=== PATIENT | female | born 1940 | race Caucasian/White ===

== ENCOUNTER → 2016-11-26 | Outpatient (CLI) | payer MEDICARE, OTHER ==
[2016-11-26 10:34] LABS: MEAN CORPUSCULAR HEMOGLOBIN 30.6 pg (27.0-33.0); MEAN CORPUSCULAR HGB CONC 33.7 g/dl (32.0-36.5); MEAN CORPUSCULAR VOLUME 90.7 fl (80.0-96.0); RED CELL DISTRIBUTION WIDTH 12.6 % (11.5-14.5); WHITE BLOOD COUNT 4.2 K/mm3 (4.0-10.0)
[2016-11-26 10:44] LABS: INR 1.02
[2016-11-26 11:07] LABS: ALBUMIN 4.1 GM/DL (3.2-5.2); ALBUMIN/GLOBULIN RATIO 1.11 (1.00-1.93); ALKALINE PHOSPHATASE 97 U/L (45-117); ALT/SGPT 22 U/L (12-78); ANION GAP 5 MEQ/L (8-16); AST/SGOT 19 U/L (15-37); BILIRUBIN,TOTAL 0.6 MG/DL (0.2-1.0); BLOOD UREA NITROGEN 15 MG/DL (7-18); CALCIUM LEVEL 9.1 MG/DL (8.8-10.2); CARBON DIOXIDE LEVEL 29 MEQ/L (21-32); CHLORIDE LEVEL 106 MEQ/L (98-107); CHOLESTEROL LEVEL 266 MG/DL (<200); GLOMERULAR FILTRATION RATE > 60.0 (>39); GLUCOSE, FASTING 89 MG/DL (83-110); POTASSIUM SERUM 4.5 MEQ/L (3.5-5.1); SODIUM LEVEL 140 MEQ/L (136-145); TOTAL PROTEIN 7.8 GM/DL (6.4-8.2); TRIGLYCERIDES LEVEL 120 MG/DL (<150)
== END ==
LOC: M LAB 09:31
PROVIDERS: ATTEND Family Medicine
DX: D64.9 Anemia, unspecified (principal); E03.9 Hypothyroidism, unspecified; Z79.01 Long term (current) use of anticoagulants

== ENCOUNTER → 2016-12-06 | Outpatient (REF) | payer MEDICARE, OTHER | LOC: M LAB REF 09:30 | PROVIDERS: ATTEND Otolaryngology | DX: K13.70 Unspecified lesions of oral mucosa (principal) ==

== ENCOUNTER 2024-12-20 11:50 | Day surgery (SDC) | payer MEDICARE ==
[~2024-12-20] VITALS: Ht 152.4 cm; Wt 59.9 kg
[~2024-12-20 11:50] MED LIST: LR 1,000 ML IV SCH; METO1TAB87 PO
[2024-12-20] MEDS: FLURBIPROFEN 0.03% OPHTH SOLN 2.5 ML OS SCH (13:40)
[2024-12-20] MEDS: TETRACAINE 0.5% OPHTH SOLN 4ML OS SCH (13:40)
[2024-12-20] MEDS: CYCLOPENTOLATE 1% OPHTH SOLN 2 ML BTL OS SCH (13:40)
[2024-12-20] MEDS: PHENYLEPHRINE 2.5% OPHTH SOL 2ML OS SCH (13:40)
[2024-12-20] MEDS: CEFUROXIME 1 MG/0.1 ML INTRACAMERAL INJ As Ordered ONE (14:48)
[2024-12-20] MEDS: LIDOCAINE 1% SDV 5 ML VIAL As Ordered ONE (14:48)
[2024-12-20 15:05] VITALS: BP 157/80; TEMP 97.2; O2SAT 96
== END 2024-12-20 15:21 | disposition home or self-care (01) ==
LOC: M SDC 11:50
PROVIDERS: ATTEND Ophthalmology
DX: H25.12 Age-related nuclear cataract, left eye (principal); I10 Essential (primary) hypertension; R73.03 Prediabetes; E78.00 Pure hypercholesterolemia, unspecified; Z79.899 Other long term (current) drug therapy; Z90.710 Acquired absence of both cervix and uterus; Z88.0 Allergy status to penicillin
CPT/HCPCS: 66984; J0697; J3010; V2632

== ENCOUNTER 2025-01-03 10:31 | Day surgery (SDC) | payer MEDICARE ==
[~2025-01-03] VITALS: Ht 160 cm; Wt 63.8 kg
[~2025-01-03 10:31] MED LIST changes: +CYCLOPENTOLATE 1% OPHTH SOLN 2 ML BTL OD SCH; +FLURBIPROFEN 0.03% OPHTH SOLN 2.5 ML OD SCH; +PHENYLEPHRINE 2.5% OPHTH SOL 2ML OD SCH; +TETRACAINE 0.5% OPHTH SOLN 4ML OD SCH
[2025-01-03] MEDS ORDERED: MIDAZOLAM INJ 2 MG/2 ML VIAL As Ordered ONE (13:41)
[2025-01-03] MEDS: LIDOCAINE 1% SDV 5 ML VIAL As Ordered ONE (14:01)
[2025-01-03] MEDS: CEFUROXIME 1 MG/0.1 ML INTRACAMERAL INJ As Ordered ONE (14:01)
[2025-01-03 14:24] VITALS: BP 141/68; TEMP 97; O2SAT 97
== END 2025-01-03 14:38 | disposition home or self-care (01) ==
LOC: M SDC 10:31
PROVIDERS: ATTEND Ophthalmology
DX: H25.11 Age-related nuclear cataract, right eye (principal); I10 Essential (primary) hypertension; E78.00 Pure hypercholesterolemia, unspecified; R73.03 Prediabetes; Z79.899 Other long term (current) drug therapy; Z88.0 Allergy status to penicillin; Z90.710 Acquired absence of both cervix and uterus; Z87.891 Personal history of nicotine dependence
CPT/HCPCS: 66984; J0697; J2250; J3010; V2632